=== PATIENT | male | born 1940 | race Caucasian/White ===

== ENCOUNTER 2017-03-19 13:14 | Emergency (ER) | payer OTHER ==
[~2017-03-19] VITALS: Ht 177.8 cm; Wt 93.0 kg
--- NOTE | ~2017-03-19 | EKG ---
[place] [address] [facility] [place] [address] ELECTROCARDIOGRAM REPORT Name: EDUARDO CONWAY Room #: DEP PRICE Rocha#: [id number] Admission: 03/19/17 Attend Phys: Discharge: 03/19/17 Date of : 44 Report #: [id number] THIS REPORT FOR: //name// [facility] ED Test Date: 2017-03-19 Test Time: 13:14:39 Pat Name: EDUARDO CONWAY Department: Room: 170 Gender: M [employer]: RAVI : 1940 Requested By: Marcy Ferro Order Number: [id number] MD: Joshua Mejía Measurements Intervals [place] Rate: 77 P: 80 MO: 171 QRS: 57 QRSD: 110 T: 37 QT: 427 QTc: 484 Interpretive Statements Normal sinus rhythm Minimal ST depression, lateral leads Minimal ST elevation, inferior leads Electronically Signed On 03-19-2017 23:03:38 [employer] by Joshua Mejía [email or web address] <ELECTRONICALLY SIGNED> By: Joshua Mejía MD 03/19/17 2303 1314 1314 MD DAWSON Blank
[2017-03-19 13:15] VITALS: BP 121/50
[2017-03-19] MEDS ORDERED: COZAAR 25 MG TA25 M1 PO (13:23)
[2017-03-19] MEDS ORDERED: HYDROCHLOROTH12.5 M1 PO (13:23)
[2017-03-19 14:06] LABS: ABSOLUTE NEUTROPHILS 14.4 thou/uL (1.4-8.2); BASOPHILS 0.7 % (0.0-2.0); EOSINOPHILS 0.2 % (0.0-3.0); HEMATOCRIT 40.2 % (42.0-52.0); HEMOGLOBIN 13.5 gm/dL (14.0-18.0); LYMPHOCYTES 17.3 % (24.0-44.0); MCH 31.9 pg (26.0-34.0); MCHC 33.6 g/dL (28.0-37.0); MCV 94.8 fL (80.0-100.0); MONOCYTES 4.3 % (1.0-8.0); PLATELET COUNT 370 thou/uL (150-400); POLYS 77.5 % (36.0-66.0); RBC 4.24 mil/uL (4.50-6.00); RDW 13.3 % (10.5-14.5); WBC 18.6 thou/uL (4.0-11.0)
[2017-03-19 14:10] LABS: ANION GAP 18 mmol/L (7-16); BUN 18 mg/dL (7-18); CALCIUM 9.6 mg/dL (8.5-10.1); CHLORIDE 98 mmol/L (98-107); CO2 21 mmol/L (21-32); CREATININE 1.4 mg/dL (0.7-1.3); GLUCOSE 176 mg/dL (74-106); POTASSIUM 3.1 mmol/L (3.5-5.1); SODIUM 137 mmol/L (136-145)
[2017-03-19 14:18] LABS: TROPONIN-I < 0.04 ng/mL (<0.06)
[2017-03-19 16:10] LABS: URINE BILIRUBIN NEGATIVE (Negative); URINE BLOOD NEGATIVE (Negative); URINE CLARITY CLEAR; URINE COLOR YELLOW; URINE GLUCOSE-RANDOM* NEGATIVE (Negative); URINE KETONES 3+ (Negative); URINE LEUKOCYTES-REFLEX NEGATIVE (Negative); URINE NITRITE-REFLEX NEGATIVE (Negative); URINE PROTEIN (DIPSTICK) NEGATIVE (Negative); URINE SPECIFIC GRAVITY 1.015 (1.005-1.035); URINE UROBILINOGEN 0.2 E.U./dl (0.2-1.0)
[2017-03-19 16:21] LABS: URINE REDUCING SUBSTANCE NEGATIVE
[2017-03-19 17:15] VITALS: BP 123/53
[2017-11-11] MEDS ORDERED: FLOMAX0.4 MG PO (15:12)
== END 2017-03-19 17:40 | disposition still patient (30) ==
LOC: ER 13:14 → EROBS 15:50 → ER 15:50
PROVIDERS: Emergency Medicine
DX: E87.6 Hypokalemia (principal); R07.9 Chest pain, unspecified; I10 Essential (primary) hypertension